=== PATIENT | female | born 1945 | race African-American/Black ===

== ENCOUNTER 2021-07-31 21:32 | Emergency (ER) | payer OTHER, MEDICARE | END 2021-07-31 23:47 | LOC: CSHERS 21:32 | DX: Z04.3 Encounter for examination and observation following other accident (principal); I11.0 Hypertensive heart disease with heart failure; I50.9 Heart failure, unspecified; E11.9 Type 2 diabetes mellitus without complications; Y92.122 Bedroom in nursing home as the place of occurrence of the external cause; Z79.01 Long term (current) use of anticoagulants; Z79.82 Long term (current) use of aspirin; Z79.4 Long term (current) use of insulin; Z79.899 Other long term (current) drug therapy | CPT/HCPCS: 70450; 72125 ==